=== PATIENT | female | born 1995 | race Hispanic/Latino ===

== ENCOUNTER 2016-08-26 08:38 | Emergency (ER) | payer OTHER ==
[~2016-08-26] VITALS: Ht 162.6 cm; Wt 78.5 kg
[2016-08-26] MEDS ORDERED: PREN1TAB11 PO (08:46)
[2016-08-26] MEDS ORDERED: ZOFR4TAB3 PO (09:51)
[2016-08-26] MEDS ORDERED: AMOX500C PO (09:51)
[2016-08-26 09:58] VITALS: BP 124/72
[2016-08-26] MEDS ORDERED: ONDANSETRON 4 MG ORAL DISINTEGRATING TAB (S0181) PO ONE (10:00)
[2016-08-26] MEDS ORDERED: AMOXICILLIN 500 MG CAP PO ONE (10:00)
[2016-08-26] MEDS ORDERED: ACETAMINOPHEN 325 MG TAB PO ONE (10:00)
== END 2016-08-26 10:54 | disposition home or self-care (01) ==
LOC: M ED 10:06
DX: O98.812 Other maternal infectious and parasitic diseases complicating pregnancy, second trimester (principal); H66.002 Acute suppurative otitis media without spontaneous rupture of ear drum, left ear; Z3A.15 15 weeks gestation of pregnancy

== ENCOUNTER 2016-10-23 13:41 | Outpatient (CLI) | payer OTHER ==
[~2016-10-23] VITALS: Ht 162.6 cm; Wt 75.0 kg
[~2016-10-23 13:41] MED LIST: AMOX500C PO; PREN1TAB11 PO; ZOFR4TAB3 PO
[2016-10-23 14:35] VITALS: BP 107/63
[2016-10-23 15:43] VITALS: BP 119/64
[2016-10-23 16:20] VITALS: BP 108/60
[2017-02-23] MEDS ORDERED: MOTR200T44 PO (09:08)
[2017-02-23] MEDS ORDERED: COLA100C5 PO (09:08)
[2017-02-23] MEDS ORDERED: TYLE325T5 PO (09:08)
== END 2016-10-23 17:01 | disposition home or self-care (01) ==
LOC: M LDO 13:41
PROVIDERS: ATTEND Student in an Organized Health Care Education/Training Program
DX: O9A.212 Injury, poisoning and certain other consequences of external causes complicating pregnancy, second trimester (principal); R55 Syncope and collapse; W01.198A Fall on same level from slipping, tripping and stumbling with subsequent striking against other object, initial encounter; Y92.89 Other specified places as the place of occurrence of the external cause; Y93.01 Activity, walking, marching and hiking; Y99.8 Other external cause status; Z3A.23 23 weeks gestation of pregnancy

== ENCOUNTER 2016-10-23 17:23 | Emergency (ER) | payer OTHER ==
[~2016-10-23] VITALS: Ht 162.6 cm; Wt 78.3 kg
[2016-10-23 19:34] LABS: BASO % 0.2 % (0.0-1.0); EOS # 0.1 K/mm3 (0.0-0.50); EOS % 0.9 % (0.0-3.0); LARGE UNSTAINED CELL # 0.1 K/mm3 (0.0-0.4); LARGE UNSTAINED CELL % 0.8 % (0.0-4.0); LYMPH # 1.6 K/mm3 (1.5-6.5); LYMPH % 17.7 % (24.0-44.0); MEAN CORPUSCULAR HEMOGLOBIN 29.6 pg (27.0-33.0); MEAN CORPUSCULAR HGB CONC 33.6 g/dl (32.0-36.5); MEAN CORPUSCULAR VOLUME 88.1 fl (80.0-96.0); MONO # 0.5 K/mm3 (0.0-0.8); MONO % 6.1 % (0.0-5.0); NEUTROPHILS # 6.4 K/mm3 (1.8-7.7); NEUTROPHILS % 74.3 % (36.0-66.0); PLATELET COUNT, AUTOMATED 248 k/mm3 (150-450); RED CELL DISTRIBUTION WIDTH 14.4 % (11.5-14.5); WHITE BLOOD COUNT 8.6 K/mm3 (4.0-10.0)
[2016-10-23] MEDS ORDERED: NS 1,000 ML IV ONE (19:45)
[2016-10-23 20:06] LABS: ANION GAP 8 MEQ/L (8-16); BLOOD UREA NITROGEN 4 MG/DL (7-18); CALCIUM LEVEL 9.5 MG/DL (8.5-10.1); CARBON DIOXIDE LEVEL 23 MEQ/L (21-32); CHLORIDE LEVEL 106 MEQ/L (98-107); CREATININE FOR GFR 0.53 MG/DL (0.55-1.02); GLOMERULAR FILTRATION RATE > 60.0 (>60); GLUCOSE, FASTING 78 MG/DL (70-105); POTASSIUM SERUM 3.5 MEQ/L (3.5-5.1); SODIUM LEVEL 137 MEQ/L (136-145)
[2016-10-23 20:57] VITALS: BP 129/71
--- NOTE | 2016-10-23 21:03 | ECGEPIP ---
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 Order Number: [id number] Reading MD: Sapna Lee Measurements Intervals [place] Rate: 72 P: 51 UT: 123 QRS: 52 QRSD: 82 T: -5 QT: 395 QTc: 435 Interpretive Statements SINUS RHYTHM WITH SINUS ARRHYTHMIA NONSPECIFIC T-WAVE ABNORMALITY NO PRIOR FOR COMPARISON Electronically Signed On 10-23-2016 21:03:41 EDT by Sapna Lee
[2017-02-23] MEDS ORDERED: MOTR200T44 PO (09:08)
[2017-02-23] MEDS ORDERED: TYLE325T5 PO (09:08)
[2017-02-23] MEDS ORDERED: COLA100C5 PO (09:08)
== END 2016-10-23 21:01 | disposition home or self-care (01) ==
LOC: M ED 17:23
DX: O9A.212 Injury, poisoning and certain other consequences of external causes complicating pregnancy, second trimester (principal); R55 Syncope and collapse; W01.198A Fall on same level from slipping, tripping and stumbling with subsequent striking against other object, initial encounter; Y92.89 Other specified places as the place of occurrence of the external cause; Y93.01 Activity, walking, marching and hiking; Y99.8 Other external cause status; Z3A.23 23 weeks gestation of pregnancy

== ENCOUNTER → 2016-10-28 | Outpatient (CLI) | payer OTHER ==
[~2016-10-28] VITALS: Ht 162.6 cm; Wt 75.0 kg
[~2016-10-28] MED LIST changes: +COLA100C5 PO; +MOTR200T44 PO; +TYLE325T5 PO
[2016-10-28 21:48] VITALS: BP 117/65
[2016-10-28 22:16] LABS: MEAN CORPUSCULAR VOLUME 88.3 fl (80.0-96.0); RED CELL DISTRIBUTION WIDTH 14.2 % (11.5-14.5); WHITE BLOOD COUNT 10.4 K/mm3 (4.0-10.0)
[2016-10-28 22:40] LABS: ALBUMIN/GLOBULIN RATIO 0.83 (1.00-1.93); ALKALINE PHOSPHATASE 89 U/L (45-117); ALT/SGPT 28 U/L (12-78); AMYLASE 27 U/L (25-115); ANION GAP 8 MEQ/L (8-16); AST/SGOT 17 U/L (15-37); BILIRUBIN,TOTAL 0.3 MG/DL (0.2-1.0); BLOOD UREA NITROGEN 4 MG/DL (7-18); CALCIUM LEVEL 8.9 MG/DL (8.5-10.1); CARBON DIOXIDE LEVEL 24 MEQ/L (21-32); CHLORIDE LEVEL 107 MEQ/L (98-107); CREATININE FOR GFR 0.56 MG/DL (0.55-1.02); GLOMERULAR FILTRATION RATE > 60.0 (>60); GLUCOSE, FASTING 91 MG/DL (70-105); POTASSIUM SERUM 3.6 MEQ/L (3.5-5.1); SODIUM LEVEL 139 MEQ/L (136-145); TOTAL PROTEIN 6.6 GM/DL (6.4-8.2)
[2016-10-28 22:59] VITALS: BP 111/63
== END ==
LOC: M LDO 21:37
PROVIDERS: ATTEND Obstetrics & Gynecology
DX: O26.892 Other specified pregnancy related conditions, second trimester (principal); R10.9 Unspecified abdominal pain; O99.012 Anemia complicating pregnancy, second trimester; Z3A.24 24 weeks gestation of pregnancy

== ENCOUNTER 2016-12-10 18:38 | Outpatient (CLI) | payer OTHER ==
[~2016-12-10] VITALS: Ht 162.6 cm; Wt 80.0 kg
[~2016-12-10 18:38] MED LIST changes: -COLA100C5 PO; -MOTR200T44 PO; -TYLE325T5 PO
[2016-12-10 18:50] VITALS: BP 125/76
[2017-02-23] MEDS ORDERED: COLA100C5 PO (09:08)
[2017-02-23] MEDS ORDERED: MOTR200T44 PO (09:08)
[2017-02-23] MEDS ORDERED: TYLE325T5 PO (09:08)
== END 2016-12-10 19:50 | disposition home or self-care (01) ==
LOC: M LDO 18:38
PROVIDERS: ATTEND Student in an Organized Health Care Education/Training Program
DX: O26.893 Other specified pregnancy related conditions, third trimester (principal); R10.30 Lower abdominal pain, unspecified; M54.5 Low back pain; Z3A.30 30 weeks gestation of pregnancy

== ENCOUNTER 2017-01-07 03:22 | Outpatient (CLI) | payer OTHER ==
[~2017-01-07] VITALS: Ht 162.6 cm; Wt 85.6 kg
[2017-01-07 03:32] VITALS: BP 130/74
--- NOTE | 2017-01-07 08:19 | HPE ---
DATE OF ADMISSION: 01/07/2017 History: This lady is a 20-year-old, 2, para 1, last menstrual period (LMP) 05/13/2016, expected date of confinement (EDC) 02/17/2017 at 34 and 1 weeks of gestation with history of decreased movement. Past History: 08/06/2009 - 39 and 2 weeks, spontaneous vaginal delivery, male, 7 pounds 11 ounces. Risk Factors: She had Chlamydia in 05/2016, test of cure was negative. She has anemia, carpal tunnel bilateral and an upper respiratory infection (URI). Labs: Show B positive. HIV negative. Hepatitis negative. RPR negative. Rubella immune. Varicella immune. Pap normal. Urine negative. Gonorrhea was negative. Chlamydia was positive, test of cure was negative. 1-hour glucose was 89. 28-week GTT was 115. On examination, no distress. Category one strip. No vaginal loss or bleeding. She has bilateral carpal tunnel and she has a URI which is viral in nature. No rhinorrhea and no purulent discharge. No colored sputum. Blood pressure 130/74, respirations are 16, pulse 86, and temperature 98.7. Urine 1.000, pH 7, and negative. The rest of the examination is unremarkable. She has category one strip. She is normocephalic, atraumatic. Neck full range of motion. Pupils equal and reactive to light. She does have some sinusitis and we dealt with that with precautions. Distal pulses symmetric. No evidence of deep vein thrombosis (DVT), pulmonary embolus (PE) or superficial phlebitis. Chest is clear bilaterally to bases. No wheezes or rhonchi. Throat is clear. No redness and no purulent discharge. No costovertebral angle (CVA) tenderness. Nontender uterus. Symphysis fundus height is appropriate. Category one strip. Four quadrant bowel sounds are noted. She has no rashes, lesions or pruritus. No arthralgia or myalgia. No complaint of a cough, wheeze, shortness of breath or dyspnea on exertion. She has no allergies. No chest pain. No bleeding. Neuro complete. No incontinency or frequency. No nausea, vomiting, diarrhea or constipation. No diabetic issues noted. PIG BREEDER issue with Chlamydia, which was test of cure negative. Past medical, surgical and family history is noncontributory. She does not smoke, drink or abuse drugs. There is no domestic no domestic violence. 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 In summary, we have decreased movements at 34 and 1, category one strip, upper respiratory tract infection viral in nature, and bilateral carpal tunnel. Precautions were given and directions regarding medications for upper respiratory tract infection. The patient has an appointment on 01/19/2017. Discharged undelivered. To keep her appointment.
[2017-02-23] MEDS ORDERED: MOTR200T44 PO (09:08)
[2017-02-23] MEDS ORDERED: COLA100C5 PO (09:08)
[2017-02-23] MEDS ORDERED: TYLE325T5 PO (09:08)
== END 2017-01-07 04:50 | disposition home or self-care (01) ==
LOC: M LDO 03:22
PROVIDERS: ATTEND Obstetrics & Gynecology
DX: O36.8130 Decreased fetal movements, third trimester, not applicable or unspecified (principal); Z3A.34 34 weeks gestation of pregnancy; J06.9 Acute upper respiratory infection, unspecified; Z88.5 Allergy status to narcotic agent; O99.513 Diseases of the respiratory system complicating pregnancy, third trimester

== ENCOUNTER 2017-01-31 02:48 | Emergency (ER) | payer OTHER ==
[~2017-01-31] VITALS: Ht 162.6 cm; Wt 87.7 kg
[2017-01-31 04:50] VITALS: BP 134/77
--- NOTE | 2017-01-31 11:30 | REP ---
AP chest: Single view. History: Chest pain. Findings: The lungs are well inflated and clear. The heart is not enlarged. Pulmonary vasculature is not increased. No significant bony abnormality is seen. Impression: Negative portable chest x-ray. Signed by Tyler Cavazos MD 01/31/2017 09:38 A
--- NOTE | 2017-02-01 07:57 | ECGEPIP ---
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
[2017-02-23] MEDS ORDERED: COLA100C5 PO (09:08)
[2017-02-23] MEDS ORDERED: MOTR200T44 PO (09:08)
[2017-02-23] MEDS ORDERED: TYLE325T5 PO (09:08)
== END 2017-01-31 04:53 | disposition home or self-care (01) ==
LOC: M ED 02:48
DX: R07.1 Chest pain on breathing (principal); Z88.5 Allergy status to narcotic agent

== ENCOUNTER 2018-01-04 18:42 | Emergency (ER) | payer OTHER | END 2018-01-04 19:53 | disposition home or self-care (01) | LOC: M ED 18:42 | DX: J31.0 Chronic rhinitis (principal); H65.91 Unspecified nonsuppurative otitis media, right ear | CPT/HCPCS: 99282 ==